=== PATIENT | female | born 2000 | race African-American/Black ===

== ENCOUNTER 2020-07-19 21:43 | Inpatient (IN) | payer SELFPAY ==
[~2020-07-19] VITALS: Ht 165.1 cm; Wt 68.0 kg
--- NOTE | 2020-07-19 21:50 | NUR ---
PT AMBULATORY TO ROOM 2 FOR BEDSIDE TRIAGE.
[2020-07-19] MEDS ORDERED: METFORMIN HCL500 M2 PO (22:04)
[2020-07-19 22:51] LABS: HEMATOCRIT 37.8 % (37.0-47.0); HEMOGLOBIN 11.7 g/dl (12.0-16.0); IMMATURE GRANULOCYTES 0.3 % (0.0-5.0); MEAN CELL VOLUME 86.1 fL CALC (80.0-100.0); MEAN CORPUSCULAR HGB 26.7 pG CALC (26.0-32.0); NEUT# 7.22 thou/uL (2.00-7.15); RED BLOOD COUNT 4.39 mill/uL (4.20-5.60); RED CELL DISTRI WIDTH 11.5 % (11.5-15.5)
[2020-07-19 23:06] LABS: ALBUMIN 3.9 g/dL (3.2-5.0); ALKALINE PHOSPHATASE 110 u/l (38-126); ANION GAP 12 (6-22 (CALC)); BILIRUBIN, TOTAL 0.5 mg/dL (0.0-1.4); BUN 5 mg/dL (7-17); BUN/CREATININE RATIO 9 (12-20 (CALC)); CARBON DIOXIDE 30 mmol/l (22-30); CHLORIDE 97 mmol/l (95-108); CREATININE 0.5 mg/dL (0.5-1.0); GFR > 60 ML/MIN (>=60 (CALC)); GFR FOR AFR.AMER. > 60 ML/MIN (>=60 (CALC)); POTASSIUM 3.8 mmol/l (3.5-5.1); SGOT/AST 15 u/l (14-36); SODIUM 135 mmol/l (137-146); TOTAL PROTEIN 7.5 g/dL (6.3-8.2)
--- NOTE | 2020-07-20 00:30 | NUR ---
PT RESTING. FEELS BETTER. IVF/ANTIBIOTICS COMPLETED. ACCUK 333. REPEAT LACTIC DRAWN BY THE LAB.
--- NOTE | 2020-07-20 01:29 | NUR ---
REPEAT ACCUK 217. DR LOZANO NOTIFIED. PT UP TO THE BR TO VOID. PT ADVISED OF PLANS FOR ADMISSION.
--- NOTE | 2020-07-20 01:45 | NUR ---
PT SWABBED FOR COVID. IVF UP AND RUNNING.
--- NOTE | 2020-07-20 03:05 | NUR ---
REPORT TO CINDY KOLB/MED-SUR[facility].
--- NOTE | 2020-07-20 03:12 | NUR ---
TO FLOOR VIA W/C. NAD.
[2020-07-20 03:15] VITALS: BP 144/98
--- NOTE | 2020-07-20 04:07 | NUR ---
PT ARRIVED ON UNIT AT 0315, ESCORTED BY ER STAFF SIMEON HOLT, VIA WHEELCHAIR. PT HAS A HISTORY OF JUVENILE DIABETES THAT SHE IS MANAGING AT HOME WITH DIET AND PO METFORMIN. LUNGS ARE CTA, BREATHING EVEN AND UNLABORED. HEART SOUNDS ARE WNL, NO MURMURS, RUBS, OR CLICKS NOTED. SKIN IS INTACT, UNOPENED ABCESS TO R UPPER HIP/THIGH RIGHT AROUND PANTY LINE. ABCESS IS FIRM TO PALPATION AND LARGE IN SIZE. PT VERBALIZES PAIN WITH ANY KIND OF TOUCH OR PALPATION TO ABCESS. PT INDICATED SHE ATTEMPTED TO DRAW OUT THE FLUID BY TAPING A CUT POTATO TO HER ABCESS. PT INDICATED IT DID OPEN THE ABCESS AND THE ABCESS DRAINED SOME BUT THEN JUST CLOSED BACK OVER AND HASN'T DRAINED SINCE. IV ABT ORDERED FOR ABCESS. IV ACCESS TO LAC # 20 RUNNING NS @ 125ML/HR. PULSES ARE STRONG. NO EDEMA NOTED. BS ACTIVE X 4 QUADS, REPORTS A BM ON 07/19/20. OFFERED PT FOOD TO WHICH SHE ACCEPTED A TV DINNER. CALL LIGHT EXPLAINED AND PLACED IN REACH. WATER AT BEDSIDE. B/P NOTED TO BE SLIGHTLY ELEVATED UPON ARRIVAL TO THE FLOOR. WILL OBTAIN A SECONDAARY B/P ONCE PT IS FULLY SETTLED INTO ROOM AND HAS STARTED TO RELAX. BED LOCKED AND IN THE LOWEST POSITION. PT IS INDEPENDENT WITH ALL ADL'S AND IADL'S. ADVISED PT ON CALLING FOR ASSISTANCE TO DECREASE RISK FOR FALLS. WILL MONITOR REMAINDER OF SHIFT.
[2020-07-20 04:15] VITALS: BP 131/95
--- NOTE | 2020-07-20 06:00 | NUR ---
PT COMPLAINED OF NAUSEA WITH VOMITTING X 1. ADMINSTERED ZOFRAN 4MG/ML VIA IV. PT TOLERATED WELL. WILL MONITOR FOR EFFECTIVENESS.
[2020-07-20] MEDS ORDERED: METFORMIN500 M2 PO (07:21)
[2020-07-20 08:00] VITALS: BP 149/82
--- NOTE | 2020-07-20 08:00 | NUR ---
PT RESTING IN THE BED AXOX3. IV INFUSING. NOTED AREA TO THE UPPER THIGH AREA. C/O PAIN TO THE AREA, MED PER ORDER. REPOSITIONED FOR COMFORT, SIDE RAILS UP CALL LIGHT IN REACH BED LOCKED IN LOW POSITION, ALL SAFTY MEASURES IN PLACE WILL CONTINUE TO MONIOTR THE PATIENT.
--- NOTE | 2020-07-20 09:40 | NUR ---
PICTURE OF WOUND TO THE RIGHT THIGH TAKEN.
--- NOTE | 2020-07-20 11:30 | NUR ---
C/O NAUSEA MED PER ORDER. WILL CONTINUE TO MONIOTR THE PATIENT.
--- NOTE | 2020-07-20 12:23 | NUR ---
DENIES NAUSEA AT THIS TIME. ABLE TO EAT HER LUNCH . DENIES PAIN AT THIS TIME.
--- NOTE | 2020-07-20 14:35 | NUR ---
REPORT RECEIVED FROM [place].
--- NOTE | 2020-07-20 14:36 | NUR ---
REPORTED OFF TO THE ONCOMING NURSE. ALL QUESTIONS ANSEWERED.
[2020-07-20 14:55] VITALS: BP 136/90
--- NOTE | 2020-07-20 15:00 | NUR ---
PATIENT IS RESTING ON HER LEFT SIDE WITH NO S/S OF DISTRESS NOTED. PO FLUIDS PROVIDED. PATIENT DENIES ANY OTHER NEEDS AT THIS TIME. CALL LIGHT IN REACH.
--- NOTE | 2020-07-20 15:35 | NUR ---
PATIENT COMING FROM THE BATHROOM TO HER BED. PATIENT CALLED. SHE HAS MODERATE AMOUNT OF HOFFMAN DRAINAGE COMING FROM RIGHT HIP ABSCESS. APPLIED SMALL DRESSING TO HIP. PATIENT DENIES ANY OTHER NEEDS AT THIS TIME. CALL LIGHT IN REACH
--- NOTE | 2020-07-20 18:45 | NUR ---
receieved report for this pt and in bed with eyes open and able to make needs known. respiration even and non labored. denies pain and discomfort and call light is within reach. will continue to observe
[2020-07-20 20:00] VITALS: BP 137/98
--- NOTE | 2020-07-21 | NUR ---
PT IN BED WITH EYES CLOSED. NO S/S OF DISTRESS OR DISCOMFORT NOTED. MEDICATIONS GIVE AND TOLERATED WELL. ON NORMAL SALINE 0.9% AT 125ML/HR AND TOLEATING WELL. ON ABT ZOSYN AND VANCOMYCIN IV AND WILL HAVE VANCO TROUGH DRAWN TOMORROW NIGHT. DRESSING CHANGE COMPLETED TO RIGHT HIP AND LARGE AMOUNTS OF SERSANQUINOUS DRAINAGE NOTED WITH NO ODOR. CALL LIGHT IW WITHIN REACH AND WILL CONTINUE TO OBSERVE.
[2020-07-21 04:00] VITALS: BP 127/84
--- NOTE | 2020-07-21 04:24 | NUR ---
PT IN BED WITH EYES CLOSED. NO S/S OF DISTRESS NOTED. MEDICATED FOR PAIN TO RIGHT HIP AND EFFECTIVE. PT ABLE TO TRANSFER TO TOILET WITH NO ASSIST NEEDED. CALL LIGHT IS WITHIN REACH. CONTINUES WITH NORMAL SALINE AT 125ML/HR. CALL LIGHT IS WITHI REACH AND WILL CONTINUE TO OBSERVE
[2020-07-21 07:06] VITALS: BP 114/76
--- NOTE | 2020-07-21 07:50 | NUR ---
PATIENT IS RESTING IN BED. ASSESSMENT DONE. PATIENT IS A&O X3. PATIENT DENIES PAIN AT THIS TIME. RESPS EVEN AND UNLABORED. IVF INFUSING WELL.RIGHT HIP DRESSING IN PLACE SMALL AMOUNT OF DRAINAGE NOTED. PATIENT DENIES NEEDS. CALL LIGHT IN REACH.
--- NOTE | 2020-07-21 11:00 | NUR ---
PATIENT IS ON HER LEFT SIDE IN BED. CHANGE PATIENT RIGHT HIP DRESSING. MODERATE AMOUNT OF HOFFMAN DRAINAGE NOTED. PATIENT DENIES PAIN MEDICATIONS AT THIS TIME. CALL LIGHT IN REACH.
[2020-07-21 11:18] LABS: ANION GAP 8 (6-22 (CALC)); BUN 3 mg/dL (7-17); BUN/CREATININE RATIO 6 (12-20 (CALC)); CARBON DIOXIDE 27 mmol/l (22-30); CHLORIDE 103 mmol/l (95-108); CREATININE 0.5 mg/dL (0.5-1.0); GFR > 60 ML/MIN (>=60 (CALC)); GFR FOR AFR.AMER. > 60 ML/MIN (>=60 (CALC)); POTASSIUM 3.6 mmol/l (3.5-5.1); SODIUM 133 mmol/l (137-146)
[2020-07-21 15:04] VITALS: BP 134/93
--- NOTE | 2020-07-21 15:05 | NUR ---
S: DORIS HENDERSON is a 20 F who presents with ABSCESS. She has a history of HX OF ABCESS. All medications in patient's chart were reviewed. O: VS: BP 134/93, P 83, RR 18,T 97.4 W 68kg, HT 65IN, Scr=0.5,CrCl= >90ml/min A: Blood culture <is pending P: Patient is on VANCO AND ZOSYN . Vancomycin ordered for pharmacy to dose. Start Vancomycin 1250MG IV Q12H. Vancomycin trough is drawn before the 4th dose on 07/21/20 @2300. Vancomycin goal trough is between <10-20 mcg/ml>. Pharmacy will follow and or advise on antibiotics use as needed. NISHA LONDONO PHARMD
--- NOTE | 2020-07-21 16:00 | NUR ---
PATIENT IS RESTTNG ON HER LEFT SIDE IN BED. TALKING TO HER BOY FRIEND IN THE CELL PHONE . PATIENT DENIES PAIN OR PAIN MEDICATION AT THIS TIME. CALL LIGHT IN REACH.
[2020-07-21 19:36] VITALS: BP 140/90
--- NOTE | 2020-07-21 19:38 | NUR ---
RECEIVED REPORT FOR THIS PT AND IN BED WITH EYES OPEN AND ABLE TO MAKE NEEDS KNOWN. RESPIRATION EVEN AND NON LABORED. CALL LIGHT IS WITHIN REQACH. WILL CONTINUE TO OBSERVE.
--- NOTE | 2020-07-22 03:02 | NUR ---
pt in bed with eyes closed. no s/sof distress noted.continues on Normal Saline 0.9% at 125ml/hr and tolerating well.no rspiratory distress noted. continues on IV abt therapy with no adverse side effects noted. iv site changed to right inner arm and tolerated well. call light is within reach and will continue observe
[2020-07-22 04:00] VITALS: BP 132/83
[2020-07-22 05:16] LABS: MEAN CELL VOLUME 84.5 fL CALC (80.0-100.0); MEAN CORPUSCULAR HGB 26.6 pG CALC (26.0-32.0); MEAN CORPUSCULAR HGB CONC 31.5 g/dL CAL (32.0-36.0); RED BLOOD COUNT 3.49 mill/uL (4.20-5.60); RED CELL DISTRI WIDTH 11.6 % (11.5-15.5)
[2020-07-22 05:20] LABS: HEMATOCRIT 29.5 % (37.0-47.0); HEMOGLOBIN 9.3 g/dl (12.0-16.0)
[2020-07-22 05:43] LABS: ANION GAP 11 (6-22 (CALC)); CARBON DIOXIDE 24 mmol/l (22-30); CHLORIDE 106 mmol/l (95-108); CREATININE 0.6 mg/dL (0.5-1.0); GFR > 60 ML/MIN (>=60 (CALC)); GFR FOR AFR.AMER. > 60 ML/MIN (>=60 (CALC)); MAGNESIUM 1.7 mg/dL (1.6-2.3); POTASSIUM 3.5 mmol/l (3.5-5.1); SODIUM 137 mmol/l (137-146)
[2020-07-22 05:44] LABS: BUN 2 mg/dL (7-17); BUN/CREATININE RATIO 3 (12-20 (CALC))
--- NOTE | 2020-07-22 06:16 | NUR ---
PT IN BED WITH EYES CLOSED. WITH NO RESPIRATORY DISTRESS NOTED. EASILY AROUSED AND CALL LIGHT IS WITHIN REACH. WILL CONTINUE TO OBSERVE
--- NOTE | 2020-07-22 07:00 | NUR ---
PATIENT LAYING IN BED AT THIS TIME ALERT AND ORIENTED X 3 DENIES ANY PAIN, LUNG BARKER ARE CLEAR. DRESSING ON RIGHT HIP INTACT WITH SMALL AMOUNT OF DRAINAGE OF SEROSANGUINOUS /PURLENT DRAINAGE NOTED. MONITOR CAR OPERATOR DONE SEE INTERVENTIONS AT THIS TIME. SIDERAILS UP X 2 CALL LIGHT AND PERSONAL ITEMS WITHIN REACH.
[2020-07-22 07:45] VITALS: BP 141/91
--- NOTE | 2020-07-22 08:35 | NUR ---
S: DORIS HENDERSON is a 20 F who presents with abscess. She has a history of diabetes mellitus. All medications in patient's chart were reviewed. O: Vancomycin trough on 07/21/20 @ 2300 was 6 ug/mL. VS: BP 141/91 mmHg, P 87 bpm, RR 20 breaths per min, T 97.7 F W 68 kg, HT 65 in, Scr= 0.6 mg/dL, CrCl= 159.2 ml/min A: Blood culture is pending. Preliminary wound culture shows growth of Staphylococcus aureus. P: Patient is on Zosyn 3.3375 g IV Q6H. Vancomycin ordered for pharmacy to dose. Start Vancomycin 1g IV Q8H. Vancomycin trough is drawn before the 4th dose on 07/23/20 @ 0800. Vancomycin goal trough is between 10-15 mcg/ml. Pharmacy will follow and or advise on antibiotics use as needed.
--- NOTE | 2020-07-22 11:47 | NUR ---
DR. MACKEY (WOUND CARE) IN TO SEE PATIENT. WOUND CLEANSED WITH SALINE AND THEN PACKED WITH IODIFORM AND DRY DRESSING APPLIED AT THIS TIME. SIDERAILS ARE UP X 2 CALL LIGHT WITHIN REACH PATIENT TOLERATED PROCEEDURE WITHOUT INCIDENT.
--- NOTE | 2020-07-22 11:59 | NUR ---
PATIENT RESTING IN BED AT THIS TIME. PATIENT MEDICATED AT THIS TIME WITH 1 HYDROCODONE 5/325MG FOR PAIN IN RIGHT HIP AFTER BEDSIDE PROCEEDURE. PATIENT ALSO COMPLAINING OF NAUSE AND 4MG OF ZOFAN GIVEN AT THIS TIME. SIDERAILS ARE UP X3 CALL LIGHT WITHINR REACH.
[2020-07-22 15:16] VITALS: BP 153/109
--- NOTE | 2020-07-22 16:00 | NUR ---
PATIENT RESTING IN BED AT THIS TIME. DENIES ANY PAIN AT THIS TIME. PATIENT STATES HER NAUSEA IS SUBSIDING AT THIS TIME. SIDERAILS ARE UP CALL LIGHT WITHIN REACH. SIDERAILS UP X 2.
--- NOTE | 2020-07-22 17:29 | NUR ---
PATIENT STATES HER NAUSEA IS GETTING MUCH BETTER AT THIS TIME. PATIENT DRESSING IS INTACT WITH SMALL AMOUNT OF SERIOUSANGEOUS DRAINAGE NOTED ON DRESSING AT THIS TIME. SIDERAILS ARE UP X 2 CALL LIGHT WITHIN REACH.
[2020-07-22 19:00] VITALS: BP 158/100
--- NOTE | 2020-07-22 19:57 | NUR ---
PT RESTING AT THIS TIME. DENIES PAIN. INDICATES SHE HAS VOMITTED X 4 TODAY AND IS "VERY TIRED". ASSESSMENT COMPLETED. BREATHING EVEN AND UNLABORED. WOUND TO R HIP REMAINS COVERED, NO STRIKE THROUGH DRAINAGE NOTED AT THIS TIME. WILL CONTINUE TO MONITOR.
[2020-07-23] VITALS: BP 160/101
--- NOTE | 2020-07-23 00:23 | NUR ---
PT LATEST B/P SHOWED 160/101, [employer] PACK[employer] SYMBOL STAMPER COOLER SERVICER NOTIFIED. NEW ORDER RECEIVED FOR HYDRALAZINE 10MG PO Q6HR PRN FOR DBP GREATER THAN 90. HYDRALAZINE ADMINSTERED, WILL MONITOR FOR EFFECTIVENESS. BED IN THE LOWEST POSITION, CALL LIGHT WITHIN REACH.
--- NOTE | 2020-07-23 03:11 | NUR ---
PT RESTING QUIETLY AT THIS TIME. NO COMPLAINTS VOICED. DENIES VOMITTING SINCE LAST EPISODE ABOUT 3 HRS AGO. BREATHING EVEN AND UNLABORED. DENIES PAIN AT THIS TIME. WILL MONITOR/.
[2020-07-23 03:52] VITALS: BP 126/87
--- NOTE | 2020-07-23 07:15 | NUR ---
PATIENT RESTING IN BED AT THIS TIME. PATIENT DENIES ANY PAIN CURRENTLY. COIN MACHINE OPERATOR DONE SEE INTERVENTIONS. LUNG BARKER CLEAR. WOUND TO RIGHT HIP DRESSING INTACT WITH SMALL AMOUNT OF SEROUSANGEOUS DRAINAGE AT THIS TIME. SIDERAILS UP X 2 CALL LIGHT AND PERSONAL ITEMS WITHIN REACH.
[2020-07-23 07:35] VITALS: BP 149/103
[2020-07-23] MEDS ORDERED: DOXYCYCL HYC100 MG PO (10:08)
[2020-07-23] MEDS ORDERED: NOVOLIN N100 UNIT/4 SC (10:16)
[2020-07-23] MEDS ORDERED: [UNRECOGNIZED DRUG - SUPPLY] SC (10:30)
--- NOTE | 2020-07-23 10:34 | NUR ---
DRESSING REMOVED UNDER ASEPTIC TECHNIQUE. PACKING REMOVED AT THIS TIME AND WOUND CLEANSED WITH SALINE AND PAT DRY WITH STERIL 4X4. WOUND THEN REPACKED WITH 1/2 IODOFORM AND STERIL 4X4 PLACED ON TOP AND ABD PAD AND TEGADERM. PATIENT TOLERATED PROCEEDURE WELL AND WITHOUT INCIDENT. SIDERAILS ARE UP X 2 CALL LIGHT WITHIN REACH.
[2020-07-23] MEDS ORDERED: ULTRAM50 M1 PO (10:36)
--- NOTE | 2020-07-23 11:30 | NUR ---
PATIENT RESTING IN BED AT THIS TIME PATIENT STATES HER PAIN IS DULL AND IS ABOUT A "3" ON THE PAIN SCALE OF 0-10. PATIENT DRESSING ON RIGHT HIP REMAINS IN PLACE AND DRY AT THIS TIME. SIDERAILS ARE UP X2 AND CALL LIGHT AND PERSONAL ITEMS WITHIN REACH.
--- NOTE | 2020-07-23 12:01 | NUR ---
PATIENT D/C AT THIS TIME. PATIENT VERBALIZES UNDERSTANDING OF D/C INSTRUCTIONS AT THIS TIME.
--- NOTE | 2020-07-23 13:05 | NUR ---
Discharge instructions given. Patient verbalizes understanding of same. Discharged in stable condition via Wheelchair to Home with family. All belongings sent with pt.
== END 2020-07-23 13:05 | disposition home or self-care (01) | DRG 603 ==
LOC: ED 21:43 → ED-I 07-20 01:12 → ED 07-20 01:44 → MS2 07-20 01:45
PROVIDERS: Emergency Medicine; Nurse Practitioner; ADMIT Internal Medicine; ATTEND Internal Medicine
PROC: 0H9HXZZ Drainage of Right Upper Leg Skin, External Approach (ICD-10-PCS; principal; 2020-07-22)
DX: L02.415 Cutaneous abscess of right lower limb (principal); E10.65 Type 1 diabetes mellitus with hyperglycemia; B95.61 Methicillin susceptible Staphylococcus aureus infection as the cause of diseases classified elsewhere; Z79.84 Long term (current) use of oral hypoglycemic drugs; Z20.822 Contact with and (suspected) exposure to COVID-19
CPT/HCPCS: J1650; J3370; S0164